=== PATIENT | female | born 1965 | race African-American/Black ===

== ENCOUNTER 2021-04-05 18:28 | Emergency (ER) | payer OTHER, SELFPAY ==
--- NOTE | ~2021-04-05 | XR_ITS ---
EXAMINATION: XR mandible min 4V INDICATION: Chin laceration TECHNIQUE: Four views of the mandible are obtained. COMPARISON: None available FINDINGS: No facial fracture is identified. Alignment at the temporomandibular joints appears to be n ormal. There are multiple missing teeth. There is a soft tissue laceration of the mandible. IMPRESSION: 1. Soft tissue laceration without acute osseous abnormality identified. If there is high clinical johnathan picion for mandibular fracture, facial CT would be recommended. Reviewed, dictated and finalized at location [facility] IMPRESSION: 1. Soft tissue laceration without acute osseous abnormality identified. If ther e is high clinical suspicion for mandibular fracture, facial CT would be recomm ended.
[2021-04-05 19:00] VITALS: BP 85/40; PULSE 60; RESP 20; TEMP 36.4; O2SAT 100
--- NOTE | 2021-04-05 19:14 | ED.GENADULT ---
HPI - General Adult General Chief complaint: Wound/Laceration Stated complaint: Cut chin due to fall Source: patient and family (Mother/Caregiver. ) Mode of arrival: ambulatory Limitations: no limitations History of Present Illness HPI narrative: 56 y/o AA female. PMHx Cognitive Deficits, IBS. Presents to Express Care today with Sister/Legal Guardian. CC is Chin laceration S/P Fall at home. Client reports to have suffered a mechanical fall, tripped , and hit chin on the floor . She reports pain and secondary laceration to chin. Denies SMITH, focal weakness, neck pain, LOC. She is able to easily recall the events surrounding her fall. Guardian also verifies events to have occurred as reported. No prodromal deficits. No dizziness, weakness, palpitations, chest pain, ect. She denies additional joint pains or injury from fall. Tetanus is noted to be UTD according to guardian in past 5 years. Bleeding is currently controlled. She is not on any active anticoagulation remedies. Related Data Home Medications Medication Instructions Recorded Confirmed Glucosamine Chondroitin PLUS 0.5 tab-cap PO DAILY 04/05/21 04/05/21 bethanechol chloride 25 mg PO TID 04/05/21 04/05/21 cholestyramine (with sugar) 1 ea PO BID 04/05/21 04/05/21 tamsulosin 0.4 mg PO HS 04/05/21 04/05/21 Allergies Allergy/AdvReac Type Severity Reaction Status Date / Time No Known Allergies Allergy Verified 04/05/21 19:05 Review of Systems Review of Systems: CONSTITUTIONAL: Denies fever, chills, sweats. EYES: Denies visual changes, redness, discharge. ENT: Denies rhinorrhea, congestion, sore throat, otalgia. CARDIOVASCULAR: Denies chest pain, palpitations, edema. RESPIRATORY: Denies dyspnea, wheezing, cough GASTROINTESTINAL: Denies abdominal pain, nausea, vomiting, diarrhea. GENITOURINARY: Denies dysuria, hematuria, abnormal discharge SKIN: Chin laceration s/p fall. MUSCULOSKELETAL: Pain to chin. Denies acute back pain, additional joint pain, or myalgia. NEUROLOGIC: Denies numbness, or focal weakness. PSYCHIATRIC: Denies anxiety or depression. All systems reviewed & are unremarkable except as noted in HPI and below Exam Narrative: GENERAL: This is a well-developed adult, in no apparent distress. Thin/Frail. HEAD: normocephalic, atraumatic. EYES: PERRL. Sclera clear/white. EOM intact, no nystagmus. EARS: External ears normal, auditory canals clear and without drainage, TMs normal. NOSE: External nose normal. No bony tenderness or deformity. No epistasis. THROAT: Mucous membranes moist, posterior pharynx clear. No exudates. FACE: With 0.7 cm linear laceration located to lower chin. No active bleeding or FB. Mild point tenderness, refer to musculoskeletal below. NECK: Neck supple, non-tender without lymphadenopathy, masses or thyromegaly. CARDIOVASCULAR: Regular rate and rhythm without murmurs, gallops, or rubs. RESPIRATORY: Clear to auscultation. Breath sounds equal bilaterally. No wheezes, rales, or rhonchi. GASTROINTESTINAL: Abdomen soft, non-tender, nondistended. Bowel sounds are active. No guarding. No bruising. SKIN: warm, with 0.7 cm chin laceration, refer to face above. NEURO: Alert, active, and age appropriate. No focal neurologic deficits. Good sensation and discrimination all extremities. MUSCULOSKELETAL: No midline spinal tenderness. With mild point tenderness and mild soft tissue swelling located to LT lower mandible. No obvious bony deformity. Jaw occlusion is intact. Remainder of musculoskeletal exam is negative. Course Course Level of Care: Express Care Visit Vital Signs Vital signs: Vital Signs Temperature 36.4 C 04/05/21 19:00 Pulse Rate 60 04/05/21 19:00 Respiratory Rate 20 04/05/21 19:00 Blood Pressure 85/40 L 04/05/21 19:00 Pulse Oximetry 100 04/05/21 19:00 Temperature 36.4 C 04/05/21 19:00 Pulse Rate 60 04/05/21 19:00 Respiratory Rate 20 04/05/21 19:00 Blood Pressure 83/46 L 04/05/21 19:32 Pu
[2021-04-05 19:32] VITALS: BP 83/46
== END 2021-04-05 19:51 | disposition home or self-care (01) ==
PROVIDERS: Emergency Provider Nurse Practitioner Adult Health; PCP Internal Medicine
DX: S01.81XA Laceration without foreign body of other part of head, initial encounter (principal); W01.0XXA Fall on same level from slipping, tripping and stumbling without subsequent striking against object, initial encounter
CPT/HCPCS: 12011; 70110; 99202; G0463

== ENCOUNTER 2021-04-14 13:42 | Emergency (ER) | payer OTHER, SELFPAY ==
[2021-04-14 13:54] VITALS: BP 106/49; PULSE 50; RESP 16; TEMP 36.1; O2SAT 100
--- NOTE | 2021-04-14 14:27 | ED.WOUNDLAC ---
HPI - Wound/Laceration General Chief Complaint: Wound/Laceration Stated Complaint: stitches removed Source: patient, family and RN notes reviewed Mode of arrival: ambulatory History of Present Illness HPI narrative: This is a 56-year-old female returns to urgent care for suture removal. According to notes patient received 3 sutures 04/06/2021 status post fall. During the removal was only 1 suture to the and left side of the laceration according to family member patient picked as site before returning to our urgent care. It appears that the wound did not heal properly it is a wide open wound no closure noted. No signs or symptoms of infection noted. Related Data Home Medications Medication Instructions Recorded Confirmed Glucosamine Chondroitin PLUS 0.5 tab-cap PO DAILY 04/05/21 04/05/21 bethanechol chloride 25 mg PO TID 04/05/21 04/05/21 cholestyramine (with sugar) 1 ea PO BID 04/05/21 04/05/21 tamsulosin 0.4 mg PO HS 04/05/21 04/05/21 Allergies Allergy/AdvReac Type Severity Reaction Status Date / Time No Known Allergies Allergy Verified 04/05/21 19:05 Review of Systems Review of Systems: A 14 organ system Review of Systems was performed and pertinent positives included in the HPI, otherwise remaining ROS is negative. Exam Narrative: GENERAL: This is a well-nourished, well-developed patient, in no apparent distress. HEAD: normocephalic, atraumatic. EYES: PERRL. Sclera clear/white. Vision is grossly intact. EARS: External ears normal, auditory canals clear and without drainage, TMs normal without perforation. Hearing grossly intact. NOSE: External nose normal with no obvious nasal discharge, nares without redness, no rhinorrhea. THROAT: Mucous membranes moist, posterior pharynx clear. NECK: Neck supple, non-tender without lymphadenopathy, masses or thyromegaly. CARDIOVASCULAR: Regular rate and rhythm without murmurs, gallops, or rubs. RESPIRATORY: Clear to auscultation. Breath sounds equal bilaterally. No wheezes, rales, or rhonchi. GASTROINTESTINAL: Abdomen soft, non-tender, nondistended. Bowel sounds are active. No hepato-splenomegaly, or palpable masses. No guarding. SKIN: Old scab laceration no closure with 1 sutures to the left and laceration no signs and symptoms of infection noted EXTREMITIES: Normal range of motion. No edema. No calf tenderness. Negative Homans sign bilaterally. BACK: Nontender without deformity or crepitance. No flank tenderness. Course Course Emergency Course: Instructed to clean site with soap and water and apply Neosporin if needed Level of Care: Express Care Visit Vital Signs Vital signs: Vital Signs Temperature 97.0 F L 04/14/21 13:54 Pulse Rate 50 L 04/14/21 13:54 Respiratory Rate 16 04/14/21 13:54 Blood Pressure 106/49 L 04/14/21 13:54 Pulse Oximetry 100 04/14/21 13:54 Temperature 97.0 F L 04/14/21 13:54 Pulse Rate 50 L 04/14/21 13:54 Respiratory Rate 16 04/14/21 13:54 Blood Pressure 106/49 L 04/14/21 13:54 Pulse Oximetry 100 04/14/21 13:54 Procedures Other Procedure Procedure 1: Other Procedure: 1 suture removed from laceration under chin MDM - Wound/Laceration Differential Diagnosis Differential diagnosis: Likely other (Suture removal) Discharge Plan Discharge Clinical Impression: Visit for suture removal Patient Disposition: Home, Self-Care Condition: Stable Instructions: Antibiotic Form, Stitches Removal (ED) Additional Instructions: Notify your provider of any signs and symptoms of infection: Fever Foul Odor Discharge Heat at the Site: Increase in Pain: Pus Redness and Swelling Clean site with soap and water and apply triple antibiotic ointment or Neosporin if needed. Prescriptions: No Action bethanechol chloride 25 mg tablet 25 mg PO TID RF: 0 tamsulosin 0.4 mg capsule 0.4 mg PO HS RF: 0 cholestyramine (with sugar) 4 gram powder in packet 1 ea PO BID RF: 0 Glucosam
== END 2021-04-14 14:17 | disposition home or self-care (01) ==
PROVIDERS: Emergency Provider Nurse Practitioner; PCP Internal Medicine
DX: S01.81XD Laceration without foreign body of other part of head, subsequent encounter (principal); X58.XXXD Exposure to other specified factors, subsequent encounter
CPT/HCPCS: 99211; G0463